=== PATIENT | male | born 1965 | race Native Hawaiian/Other Pacific Islander ===

== ENCOUNTER 2019-02-07 15:41 | Outpatient (CLI) | payer BC | END 2019-02-07 23:59 | disposition home or self-care (01) | LOC: RAD 15:41 | DX: M54.17 Radiculopathy, lumbosacral region (principal); M25.559 Pain in unspecified hip ==

== ENCOUNTER 2019-02-22 13:26 | Outpatient (CLI) | payer BC | END 2019-02-22 21:54 | disposition home or self-care (01) | LOC: MRI 13:26 | DX: M54.17 Radiculopathy, lumbosacral region (principal) ==

== ENCOUNTER 2019-03-29 21:04 | Emergency (ER) | payer BC ==
[~2019-03-29] VITALS: Ht 167.6 cm; Wt 105.7 kg
[2019-03-30 00:15] VITALS: BP 157/98; TEMP 98.2
== END 2019-03-30 00:25 | disposition home or self-care (01) ==
LOC: ED 21:04
DX: K02.9 Dental caries, unspecified (principal); K04.7 Periapical abscess without sinus; F17.210 Nicotine dependence, cigarettes, uncomplicated; F17.290 Nicotine dependence, other tobacco product, uncomplicated
CPT/HCPCS: 96372; 99282; 99283; J1885

== ENCOUNTER 2020-08-07 12:42 | Emergency (ER) | payer BC ==
[~2020-08-07] VITALS: Ht 167.6 cm; Wt 113.4 kg
[2020-08-07 13:42] LABS: PLATELET COUNT 335 K/uL (142-355)
[2020-08-07 13:49] LABS: POTASSIUM 4.2 mmol/L (3.6-5.2)
[2020-08-07 17:00] VITALS: BP 158/79; TEMP 98.5
== END 2020-08-07 17:00 | disposition home or self-care (01) ==
LOC: ED 12:42
PROVIDERS: Family Medicine
DX: R10.84 Generalized abdominal pain (principal); E27.8 Other specified disorders of adrenal gland; K76.0 Fatty (change of) liver, not elsewhere classified
CPT/HCPCS: 36415; 80053; 81000; 82150; 83690; 85027; 96374; 99284; J3490; Q9963

== ENCOUNTER 2020-08-21 12:12 | Outpatient (CLI) | payer BC | END 2020-08-21 20:57 | disposition home or self-care (01) | LOC: RAD 12:12 | PROVIDERS: ATTEND Nurse Practitioner Family | DX: M54.9 Dorsalgia, unspecified (principal) ==

== ENCOUNTER 2022-05-21 17:22 | Emergency (ER) | payer BC ==
[~2022-05-21] VITALS: Ht 165.1 cm; Wt 113.4 kg
[2022-05-21 17:25] VITALS: TEMP 98.7
[2022-05-21 18:15] VITALS: BP 178/98
== END 2022-05-21 18:19 | disposition home or self-care (01) ==
LOC: ED 17:22
DX: K02.9 Dental caries, unspecified (principal); K04.7 Periapical abscess without sinus; R03.0 Elevated blood-pressure reading, without diagnosis of hypertension; K08.89 Other specified disorders of teeth and supporting structures; F17.210 Nicotine dependence, cigarettes, uncomplicated
CPT/HCPCS: 96372; 99283; J0696; J1885